=== PATIENT | female | born 1950 | race Hispanic/Latino ===

== ENCOUNTER 2018-06-03 01:02 | Emergency (ER) | payer SELFPAY ==
[2018-06-03 01:48] VITALS: PULSE 55; RESP 16; TEMP 97.8; O2SAT 99
== END 2018-06-03 02:37 | disposition left against medical advice (07) ==
LOC: H.ER 01:02
DX: Z02.89 Encounter for other administrative examinations (principal)

== ENCOUNTER 2018-06-03 09:23 | Emergency (ER) | payer OTHER ==
[2018-06-03 09:31] VITALS: O2SAT 98
--- NOTE | 2018-06-03 10:15 | ED PDOC ---
Lower Extremity Pain/Injury Time Seen by Provider: 06/03/18 09:42 Chief Complaint (Nursing): Lower Extremity Problem/Injury Chief Complaint (Provider): Swollen left leg History Per: Patient History/Exam Limitations: no limitations Onset/Duration Of Symptoms: Days (x3 weeks) Current Symptoms Are (Timing): Still Present Additional Complaint(s): Latanya Elizondo, a 68 year old female wit past medical history of osteoporosis, presents to the emergency department with left leg swelling, but no pain, onset 3 weeks ago. Patient reports being in [place] a few weeks ago when the leg initially swelled up, and got blood work done to check for DVT which was negative. She states that she recently fell and her leg was a little swollen. No further medical complaints. Past Medical History Reviewed: Historical Data, Nursing Documentation, Vital Signs Vital Signs: Last Vital Signs Temp 98.4 F 06/03/18 09:31 Pulse 68 06/03/18 09:31 Resp 17 06/03/18 09:31 BP 110/58 L 06/03/18 09:31 Pulse Ox 98 06/03/18 09:31 - Medical History PMH: Osteoporosis - Family History Family History: States: Unknown Family Hx - Allergies Allergies/Adverse Reactions: Allergies Allergy/AdvReac Type Severity Reaction Status Date / Time No Known Allergies Allergy Verified 06/03/18 01:48 Review of Systems ROS Statement: Except As Marked, All Systems Reviewed And Found Negative Musculoskeletal: Positive for: Other (left swollen leg) Physical Exam - Reviewed Nursing Documentation Reviewed: Yes Vital Signs Reviewed: Yes - Physical Exam Appears: Positive for: Well, Non-toxic, No Acute Distress Head Exam: Positive for: ATRAUMATIC, NORMAL INSPECTION, NORMOCEPHALIC Cardiovascular/Chest: Positive for: Regular Rate, Rhythm Respiratory: Positive for: Normal Breath Sounds. Negative for: Respiratory Distress Extremity: Positive for: Swelling (left lateral ankle). Negative for: Tenderness, Calf Tenderness, Other (erythema, Vaibhav's sign, calf swelling) - Laboratory Results Result Diagrams: 06/03/18 13:29 06/03/18 13:29 - ECG O2 Sat by Pulse Oximetry: 98 (RA) Pulse Ox Interpretation: Normal Medical Decision Making Medical Decision Making: Time: 9:42 Initial Impression: residual swelling from fall Initial Plan: --Left ankle x ray --Ultrasound Time: 21:29 Extremity US FINDINGS: 2-D, color and duplex Doppler analysis of the lower extremity venous circulation using routine protocol from the femoral veins through the popliteal veins. Venous compressibility: Normal. Flow and augmentation patterns: Normal. Visualized veins upper third of calf: Normal. Note made of a large elliptical shaped fluid collection in the left inguinal region that measures approximately 8.1 x 3.0 x 4.0 cm subjacent to the greater saphenous and common femoral veins. Clinical correlation recommended. IMPRESSION: No sonographic or Doppler evidence for DVT in left lower extremity. Large elliptical shaped fluid collection in the left inguinal region that measures approximately 8.1 x 3.0 x 4.0 cm subjacent to the greater saphenous and common femoral veins. Clinical correlation recommended. Time: 13:41 Ankle Xray FINDINGS: BONES: No evidence of acute displaced fracture nor dislocation. The osseous structures appear intact. Talar dome intact. JOINTS: Ankle mortise maintained. No significant degenerative osteoarthritis. SOFT TISSUES: Normal. OTHER FINDINGS: None. IMPRESSION: No acute fractures. Scribe Attestation: Documented by Nicci Limon, acting as a scribe for Isabel Bautista MD. Provider Scribe Attestation: All medical record entries made by the Scribe were at my direction and personally dictated by me. I have reviewed the chart and agree that the record accurately reflects my personal performance of the history, physical exam, medical decision making, and the department course for this patient. I have also personally directed, reviewed, and agree with the discharge instructions and disposition. 12.45p - incidental findings reviewed with patient and then with her cousin, Arun Smith ([phone]), a physician in [facility]. Decided to do additional imaging, as recommended during discussion with Dr. Gomez. Patient aware and agrees. Disposition - Clinical Impression Clinical Impression: Leg swelling - Patient ED Disposition Is Patient to be Admitted: Transfer of Care Doctor Will See Patient In The: Office Counseled Patient/Family Regarding: Diagnosis, Need For Followup - Disposition Disposition: Transfer of Care Disposition Time: 14:57 Condition: STABLE Forms: Meican (Faroese) Patient Signed Over To: Ramsye Juan Present On Arrival: Falls Or Trauma
--- NOTE | 2018-06-03 12:31 | US ---
Date of service: 06/03/2018 HISTORY: recurrent swelling . PRIORS: None. FINDINGS: 2-D, color and duplex Doppler analysis of the lower extremity venous circulation using routine protocol from the femoral veins through the popliteal veins. Venous compressibility: Normal. Flow and augmentation patterns: Normal. Visualized veins upper third of calf: Normal. Note made of a large elliptical shaped fluid collection in the left inguinal region that measures approximately 8.1 x 3.0 x 4.0 cm subjacent to the greater saphenous and common femoral veins. Clinical correlation recommended. IMPRESSION: No sonographic or Doppler evidence for DVT in left lower extremity. Large elliptical shaped fluid collection in the left inguinal region that measures approximately 8.1 x 3.0 x 4.0 cm subjacent to the greater saphenous and common femoral veins. Clinical correlation recommended.
[2018-06-03 13:36] LABS: BASO % 0.7 % (0.0-2.0); EOS # 0.1 K/uL (0.0-0.7); EOS % 1.5 % (0.0-4.0); HEMOGLOBIN 14.4 g/dL (12.0-16.0); LYMPH # 2.3 K/uL (1.0-4.3); LYMPH % 33.4 % (20.0-40.0); MEAN CELL VOLUME 93.4 fl (81.0-99.0); MEAN CORPUSCULAR HEMOGLOBIN 31.6 pg (27.0-31.0); MEAN CORPUSCULAR HGB CONC 33.8 g/dL (33.0-37.0); MEAN PLATELET VOLUME 8.5 fl (7.2-11.7); MONO # 0.4 K/uL (0.0-0.8); MONO % 5.4 % (0.0-10.0); RBC 4.55 Mil/uL (3.80-5.20); WHITE BLOOD COUNT 6.8 K/uL (4.8-10.8)
--- NOTE | 2018-06-03 13:43 | RAD ---
Date of service: 06/03/2018 PROCEDURE: Left Ankle Radiographs. HISTORY: pain and recent fall COMPARISON: None FINDINGS: BONES: No evidence of acute displaced fracture nor dislocation. The osseous structures appear intact. Talar dome intact. JOINTS: Ankle mortise maintained. No significant degenerative osteoarthritis. SOFT TISSUES: Normal. OTHER FINDINGS: None. IMPRESSION: No acute fractures.
[2018-06-03 13:49] LABS: ALB/GLOB RATIO 1.6 (1.0-2.1); ALBUMIN 4.4 g/dL (3.5-5.0); ALT/SGPT 38 U/L (9-52); AST/SGOT 36 U/L (14-36); BLOOD UREA NITROGEN 15 mg/dl (7-17); CALCIUM 9.8 mg/dL (8.4-10.2); GFR NON-AFRICAN AMERICAN > 60
[2018-06-03] MEDS ORDERED: Iohexol 300 100 ML IJ ONE (15:25)
[2018-06-03] MEDS ORDERED: Sodium Chloride 0.9% 50 ML IV ONE (15:25)
--- NOTE | 2018-06-03 15:46 | ED PDOC ---
- Laboratory Results Result Diagrams: 06/03/18 13:29 06/03/18 13:29 Interpretation Of Abn Labs: no acute - ECG O2 Sat by Pulse Oximetry: 98 (RA) Pulse Ox Interpretation: Normal - Progress ED Course And Treament: IMPRESSION: There is a large elliptical shaped fluid collection which appears to be located within the confines of the left lower iliopsoas muscle extending inferiorly to the level of the lesser trochanter. . There are no discernible is enhancing solid components and therefore the findings most likely represent a chronic hematoma. Followup the CT scan or MRI at interval recommended to assess stability. Consider surgical consultation. 8.24cc x 4.14t x 3.3ap cm 1649: Stable. AAOx3. Tolerated PO. Will consult surgery for eval of hematoma. 1725: Surgery saw pt. Does not need further intervention at this time. Pt. to fu with Dr. Read in 1 week. Medical Decision Making Medical Decision Making: Time: 1500 -- Patient endorsed to me by Dr. Bautista. 68 y/o female complaining of lower extremity pain, pending follow up on Pelvis CT. ____ Scribe Attestation: Documented by Carina Cat acting as a scribe for Ramsey Juan MD. Provider Scribe Attestation: All medical record entries made by the Scribe were at my direction and personally dictated by me. I have reviewed the chart and agree that the record accurately reflects my personal performance of the history, physical exam, medical decision making, and the department course for this patient. I have also personally directed, reviewed, and agree with the discharge instructions and disposition. Disposition - Clinical Impression Clinical Impression: Leg swelling, Hematoma of groin - POA Present On Arrival: None - Disposition Referrals: [facility] [Outside] - 06/05/18 Holland Read MD [Staff Provider] - 06/11/18 Disposition: Routine/Home Disposition Time: 17:28 Condition: STABLE Additional Instructions: Return if not better in 3 days. See the surgeon in 1 week for your groin hematoma. CT read: Date of service: 06/03/2018 PROCEDURE: CT Pelvis with contrast HISTORY: left inguinal cyst COMPARISON: Correlation made with concurrent round left lower extremity DVT study. TECHNIQUE: Contiguous axial images of the pelvis/upper thigh with contrast. Coronal and sagittal reformats generated. Contrast dose: 95 cc Omnipaque 300 contrast material. Radiation dose: Total exam DLP = 265.77 mGy-cm. This CT exam was performed using one or more of the following dose reduction techniques: Automated exposure control, adjustment of the mA and/or kV according to patient size, and/or use of iterative reconstruction technique. FINDINGS: BLADDER: Urinary bladder is physiologically distended. No evidence intraluminal urinary bladder calculi. . No mass. REPRODUCTIVE ORGANS: Questionable small right adnexal cyst. . There appears to be a small amount of free fluid in the left aspect of the cul de sac. VISUALIZED BOWEL: . Few scattered colonic diverticula along the sigmoid colon felt to be present. No definitive radiographic evidence of acute diverticulitis. PERITONEUM: Unremarkable, as visualized. No free fluid. No free air. LYMPH NODES: Unremarkable. No enlarged lymph nodes. VASCULATURE: Unremarkable. BONES: No evidence of acute fracture nor dislocation. Pelvis appears intact. . Re- demonstrated is a relatively large elliptical shaped fluid collection which measures approximately 8.24cc x 4.14t x 3.3ap cm located in left inguinal region. This collection appears to be located within the confines of the lower iliopsoas musculature, extending from the roof of the acetabulum inferiorly To the region of the lesser trochanter. Hounsfield units in the upper teens suggest as a proteinaceous content. This probably represents a chronic hematoma. Followup interval recommended to assess stability. OTHER FINDINGS: None. IMPRESSION: There is a large elliptical shaped fluid collection which appears to be located within the confines of the left lower iliopsoas muscle extending inferiorly to the level of the lesser trochanter. . There are no discernible is enhancing solid components and therefore the findings most likely represent a chronic hematoma. Followup the CT scan or MRI at interval recommended to assess stability. Consider surgical consultation. Instructions: Swelling Forms: Video[employer] (Guinean)
--- NOTE | 2018-06-03 16:37 | CT ---
Date of service: 06/03/2018 PROCEDURE: CT Pelvis with contrast HISTORY: left inguinal cyst COMPARISON: Correlation made with concurrent round left lower extremity DVT study. TECHNIQUE: Contiguous axial images of the pelvis/upper thigh with contrast. Coronal and sagittal reformats generated. Contrast dose: 95 cc Omnipaque 300 contrast material. Radiation dose: Total exam DLP = 265.77 mGy-cm. This CT exam was performed using one or more of the following dose reduction techniques: Automated exposure control, adjustment of the mA and/or kV according to patient size, and/or use of iterative reconstruction technique. FINDINGS: BLADDER: Urinary bladder is physiologically distended. No evidence intraluminal urinary bladder calculi. . No mass. REPRODUCTIVE ORGANS: Questionable small right adnexal cyst. . There appears to be a small amount of free fluid in the left aspect of the cul de sac. VISUALIZED BOWEL: . Few scattered colonic diverticula along the sigmoid colon felt to be present. No definitive radiographic evidence of acute diverticulitis. PERITONEUM: Unremarkable, as visualized. No free fluid. No free air. LYMPH NODES: Unremarkable. No enlarged lymph nodes. VASCULATURE: Unremarkable. BONES: No evidence of acute fracture nor dislocation. Pelvis appears intact. . Re- demonstrated is a relatively large elliptical shaped fluid collection which measures approximately 8.24cc x 4.14t x 3.3ap cm located in left inguinal region. This collection appears to be located within the confines of the lower iliopsoas musculature, extending from the roof of the acetabulum inferiorly To the region of the lesser trochanter. Hounsfield units in the upper teens suggest as a proteinaceous content. This probably represents a chronic hematoma. Followup interval recommended to assess stability. OTHER FINDINGS: None. IMPRESSION: There is a large elliptical shaped fluid collection which appears to be located within the confines of the left lower iliopsoas muscle extending inferiorly to the level of the lesser trochanter. . There are no discernible is enhancing solid components and therefore the findings most likely represent a chronic hematoma. Followup the CT scan or MRI at interval recommended to assess stability. Consider surgical consultation.
--- NOTE | 2018-06-03 17:23 | CP.PCM.CON ---
History of Present Illness - History of Present Illness History of Present Illness: Surgery: Dr. Read CC: L hip pain HPI: 68F w. no significant pmh presents to ED w. L hip pain. Pt states that she was on a long flight from [place] and landed last night. She had pain in her leg and states that she was concerned for a blood clot. She denies SOB, no CP/ palpitations. A duplex of the LLE was negative for DVT but showed a 8.1 x 3.0 x 4.0 cm collection in the L inguinal region. CT scan was done which had findings suggestive of chronic hematoma. Upon further questioning, pt states that 2 weeks ago while running across street, she slipped on oil and fell on her L side. She states she had some mild pain in her hip but did not seek further workup. She does not take any blood thinners and denies any coagulopathic disorders. PMH: none PSH: tonsils Meds: None NKDA Social: Social ETOH. no Tobacco/drugs Fhx: Non-contributory Review of Systems - Review of Systems All systems: reviewed and no additional remarkable complaints except (HPI) Past Patient History - Infectious Disease Hx of Infectious Diseases: None - Past Social History Smoking Status: Never Smoked - MUSCULOSKELETAL/RHEUMATOLOGICAL Hx Osteoporosis: Yes - PSYCHIATRIC Hx Substance Use: No - SURGICAL HISTORY Hx Surgeries: Yes Meds Allergies/Adverse Reactions: Allergies Allergy/AdvReac Type Severity Reaction Status Date / Time No Known Allergies Allergy Verified 06/03/18 01:48 Physical Exam - Constitutional Appears: Non-toxic, No Acute Distress - Head Exam Head Exam: ATRAUMATIC, NORMOCEPHALIC - Eye Exam Eye Exam: EOMI - ENT Exam ENT Exam: Mucous Membranes Moist - Neck Exam Neck exam: Positive for: Full Rom - Respiratory Exam Respiratory Exam: NORMAL BREATHING PATTERN. absent: Accessory Muscle Use, Respiratory Distress - GI/Abdominal Exam GI & Abdominal Exam: Soft. absent: Distended, Firm, Guarding, Rebound, Rigid, Tenderness - Extremities Exam Extremities exam: Positive for: pedal pulses present. Negative for: calf tenderness, pedal edema Additional comments: Full ROM of L hip - Neurological Exam Neurological exam: Alert, Oriented x3 - Psychiatric Exam Psychiatric exam: Normal Affect, Normal Mood Results - Vital Signs Recent Vital Signs: Last Vital Signs Temp 98.4 F 06/03/18 09:31 Pulse 68 06/03/18 09:31 Resp 17 06/03/18 09:31 BP 110/58 L 06/03/18 09:31 Pulse Ox 98 06/03/18 16:50 - Labs Result Diagrams: 06/03/18 13:29 06/03/18 13:29 Labs: Laboratory Results - last 24 hr 06/03/18 06/03/18 13:29 13:29 WBC 6.8 RBC 4.55 Hgb 14.4 Hct 42.5 MCV 93.4 MCH 31.6 H MCHC 33.8 RDW 14.0 Plt Count 223 MPV 8.5 Neut % (Auto) 59.0 Lymph % (Auto) 33.4 [place] % (Auto) 5.4 Eos % (Auto) 1.5 Baso % (Auto) 0.7 Neut # (Auto) 4.0 Lymph # (Auto) 2.3 [place] # (Auto) 0.4 Eos # (Auto) 0.1 Baso # (Auto) 0.0 Sodium 143 Potassium 4.7 Chloride 109 H Carbon Dioxide 26 Anion Gap 13 BUN 15 Creatinine 0.5 L Est GFR ( Amer) > 60 Est GFR (Non-Af Amer) > 60 Random Glucose 81 Calcium 9.8 Total Bilirubin 0.7 AST 36 ALT 38 Alkaline Phosphatase 48 Total Protein 7.3 Albumin 4.4 Globulin 2.8 Albumin/Globulin Ratio 1.6 - Imaging and Cardiology Venous US Status: Image reviewed by me, Report reviewed by me CT scan - pelvis Status: Image reviewed by me, Report reviewed by me Assessment & Plan - Assessment and Plan (Free Text) Assessment: 68F w. L iliopsoas hematoma -VSS, Hgb WNL -Clear for D/C from surgical stand point -F/U with surgery or PMD in 1 week -Return to ED if symptoms worsen -d/w attending Roxanne PGY4
[2018-06-03 17:55] VITALS: BP 110/67; PULSE 80; RESP 19; TEMP 98
== END 2018-06-03 17:40 | disposition home or self-care (01) ==
LOC: H.ER 09:23 → SUPCPDRO 09:23 → H.ER 17:40
DX: R60.0 Localized edema (principal); M81.0 Age-related osteoporosis without current pathological fracture; M79.81 Nontraumatic hematoma of soft tissue
CPT/HCPCS: 72193; 73610; 80053; 85025; 93971; 99284; Q9967